=== PATIENT | male | born 2000 | race Two or more races ===

== ENCOUNTER 2023-07-05 10:54 | Emergency (ER) | payer BC ==
[2023-07-05 11:47] LABS: CORONAVIRUS COVID-19 NAA POSITIVE (NEGATIVE); INFLUENZA A NAA NEGATIVE (NEGATIVE); INFLUENZA B NAA NEGATIVE (NEGATIVE)
== END 2023-07-05 12:12 | disposition home or self-care (01) ==
LOC: MW.ED 10:54
DX: U07.1 COVID-19 (principal)
CPT/HCPCS: 0240U; 99283